=== PATIENT | female | born 1985 | race Caucasian/White ===

== ENCOUNTER 2024-01-23 10:40 | Emergency (ER) | payer BC, SELFPAY ==
--- NOTE | ~2024-01-23 | XR_ITS ---
XR hand LT min 3V Ordering provider: Elaine Zhang APRN History: . injury pain 3rd MP joint . Comparison: None. FINDINGS: BONES: No acute fracture or dislocation. JOINT SPACES: Well maintained. SOFT TISSUES: Unremarkable. IMPRESSION: No acute osseous abnormality left hand. Reviewed, dictated and finalized at location A. [employer]ISER
[2024-01-23 10:51] VITALS: BP 127/90; PULSE 73; RESP 16; TEMP 36.6; O2SAT 100
--- NOTE | 2024-01-23 11:28 | ED.UPPEXIN ---
HPI - Extremity Injury (Upper) General Chief Complaint: Extremity Injury, Upper Stated Complaint: hand injury Time Seen by Provider: 01/23/24 11:15 Source: patient, RN notes reviewed and old records reviewed Mode of arrival: ambulatory Limitations: no limitations History of Present Illness HPI narrative: patient presents with complaints of left hand pain. She hurt her hand last week while playing volleyball. She has not been taking anything for her symptoms. She retains full use of the hand. She denies any other injury or trauma. She voices no other concerns or complaints at this time Related Data Home Medications ?Medication ?Instructions ?Recorded ?Confirmed ?Last Taken ?Type fluticasone furoate 100 inhalation 01/23/24 Unknown History mcg-vilanterol 25 mcg/dose inhalation powder (Breo Ellipta) Allergies Allergy/AdvReac Type Severity Reaction Status Date / Time amoxicillin AdvReac Intermediate Swelling Verified 01/23/24 11:08 Penicillins AdvReac Intermediate Swelling Verified 01/23/24 11:08 AMOXICILLIN TRIHYDRATE AdvReac Intermediate Swelling Uncoded 01/23/24 11:08 POTASSIUM CLAVULANATE AdvReac Intermediate Swelling Uncoded 01/23/24 11:08 Review of Systems Review of Systems: All systems reviewed & are unremarkable except as noted in HPI and below Constitutional: Constitutional: Reports no additional constitutional complaints ENT: Reports system reviewed and no additional complaints, except as documented Cardiovascular: Cardiovascular: Reports no additional cardiovascular complaints Respiratory: Respiratory: Reports no additional respiratory complaints Gastrointestinal: Gastrointestinal: Reports no additional gastrointestinal complaints Musculoskeletal: Musculoskeletal: Reports no additional musculoskeletal complaints and Reports as per HPI [facility] Past Medical History Medical History Asthma Screening for thyroid disorder Encounter for screening for lipid disorder Screening for diabetes mellitus Family History Family History Father Hypertension Grandparent Hypertension Cerebrovascular accident Family history of pancreatic cancer Family history of coronary artery disease Mother No problems noted. Sibling No problems noted. Social History Social History Smoking status: Never smoker Second hand tobacco smoke exposure: No Alcohol intake: current Substance use: never Substance use type: does not use Do You Feel Safe in your Home?: Yes Lack of Transportation: No Lack of Food: Never True Current Housing: I Have Housing Concerned About Future Housing: No Difficulty Paying Gas/Electric Bills: No Difficulty Paying for Meds: No Currently Unemployed: No Education: Bachelor's Degree Difficulty w/ Childcare or Family Care: No Living arrangements: with family Additional occupation/education comments: Stay at home mom. Gender identity (if verbalized by the patient): Female Comments At the time of my signature, I reviewed and agree with the nursing past medical, surgical, social, and family history. There is no relevant family history pertinent to the patient complaint. Exam Const: General: cooperative, no acute distress, alert and awake Orientation/consciousness: oriented to person, oriented to place and oriented to time HENMT: Head: normal to inspection Resp: Effort & Inspection: normal respiratory effort and able to speak in complete sentences Auscultation: clear to auscultation bilaterally, no crackles, no rales, no rhonchi and no wheezes Cardio: Palpation: normal PMI Rate: regular rate Rhythm: regular rhythm Heart sounds: S1 normal heart sound present and S2 normal heart sound present Neuro: General: oriented to person, oriented to place and oriented to time Cranial nerves: Yes CN's II-XII intact bilaterally Extrem: Hand/finger images:  1. tenderness Psych: Appearance: grossly normal Thought process: Normal thought process present Insight: Good insight present (Psych) Judgement: Good judgement present (Psych) Course Course Level of Care: Express Care Visit Vital Signs Vital signs: Vital Signs Temperature 97.9 F 01/23/24 10:51 Pulse Rate 73 01/23/24 10:51 Respiratory Rate 16 01/23/24 10:51 Blood Pressure 127/90 01/23/24 10:51 Pulse Oximetry 100 01/23/24 10:51 Oxygen Delivery Room Air 01/23/24 10:51 Temperature 97.9 F 01/23/24 10:51 Pulse Rate 73 01/23/24 10:51 Respiratory Rate 16 01/23/24 10:51 Blood Pressure 127/90 01/23/24 10:51 Pulse Oximetry 100 01/23/24 10:51 Oxygen Delivery Room Air 01/23/24 10:51 Reviewed MDM - Extremity Injury (Upper) MDM Narrative Medical decision making narrative: reassuring physical exam, negative x-ray. Patient advised to treat symptomatically. Follow with primary care provider. Emergency department for new or worse symptoms. Discharge instructions reviewed with patient, as well as provided in writing per nursing staff. The instructions also include specific and strict return/GO TO THE ER as well as f/u information. All questions have been answered, and the patient deny any further questions with discharge and discharge plan. Some parts of this dictation were generated by voice recognition software and may contain typographical and/or grammatical inaccuracies. Differential Diagnosis Differential diagnosis: Likely fracture of hand and other (Contusion, musculoskeletal pain) Medical Records Attestation: I reviewed the patient's medical records. Imaging Data Attestation: I personally reviewed and interpreted this imaging study as follows: My impression: negative Radiologist's impression: [address] [id number] XRay Report Signed Patient: Nalini Fernandez : 1985 MR#: [id number] Age: 38 Acct:[id number] Loc: [facility] ADM Date: 01/23/24Attending Dr: Ordering Physician: Elaine Zhang FNP Date of Service: 01/23/24 Procedure(s): XR hand LT min 3V Accession Number(s): [id number] cc: Elaine Zhang FNP; Bia Wilks APN~ XR hand LT min 3V Ordering provider: Elaine Zhang APRN History: . injury pain 3rd MP joint . Comparison: None. FINDINGS: BONES: No acute fracture or dislocation. JOINT SPACES: Well maintained. SOFT TISSUES: Unremarkable. IMPRESSION: No acute osseous abnormality left hand. Reviewed, dictated and finalized at location A. [employer] Dictated By: John Mendoza MD 01/23/24 1119 Signed By: <Electronically signed by John Mendoza MD in [place]> 01/23/24 1121 Discharge Plan Discharge Clinical Impression: Hand pain, left Patient Disposition: Home, Self-Care Condition: Stable Instructions: Antibiotic Form, P.R.I.C.E. Treatment (ED) Additional Instructions: use Tylenol and/or ibuprofen per package instructions as needed for pain. Follow-up with primary care provider. Emergency department for new or worse symptoms Patient Language: Turkmen Prescriptions: No Action fluticasone furoate-vilanterol [Breo Ellipta] 100-25 mcg/dose blister with device INHALATION albuterol sulfate [ProAir HFA] 90 mcg/actuation HFA aerosol inhaler 1 inh INHALATION Q4H PRN (Reason: shortness of breath or wheezing) Qty: 6.7 3RF montelukast 10 mg tablet 10 mg PO DAILY Qty: 90 1RF fluticasone furoate-vilanterol [Breo Ellipta] 200-25 mcg/dose blister with device 1 inh inhalation DAILY Qty: 60 0RF Follow-up/Referrals: Bia Wilks FNP [Primary Care Provider] - 2 Weeks Time of Disposition: 11:38
== END 2024-01-23 11:41 | disposition home or self-care (01) ==
PROVIDERS: Emergency Provider Nurse Practitioner Family; PCP Nurse Practitioner Family
DX: M79.642 Pain in left hand (principal); J45.909 Unspecified asthma, uncomplicated
CPT/HCPCS: 73130; 99213; G0463